=== PATIENT | female | born 2000 | race Caucasian/White ===

== ENCOUNTER 2024-07-04 21:08 | Observation (INO) | payer OTHER, SELFPAY ==
[2024-07-04 14:41] VITALS: BP 176/113
[2024-07-04 15:15] LABS: % Basophils 0.2 % (0-2); % Eosinophils 1.9 % (0-6); % Immature Granulocytes 0.7 % (0-0.5); % Lymphocytes 11.9 % (20.5-51.1); % Neutrophils 80.3 % (42.2-75.2); Absolute Eosinophils 0.3 10^3/uL (0-0.7); Absolute Immature Granulocytes 0.1 10^3/uL (0-0.05); Absolute Lymphocytes 1.6 10^3/uL (1.2-3.4); Absolute Monocytes 0.7 10^3/uL (0.1-0.6); Absolute Neutrophils 10.5 10^3/uL (1.4-6.5); Hematocrit 39.6 % (37.0-47.0); Hemoglobin 12.1 g/dL (12.0-16.0); Mean Corp Hgb Conc. 30.6 g/dL (33.0-37.0); Mean Corpuscular Hgb 24.5 pg (27.0-31.0); Mean Corpuscular Volume 80.3 fL (81.0-99.0); Mean Platelet Volume 8.2 fL (7.4-10.4); Nucleated Red Blood Cells % 0.2 %; Platelet Count 510 10^3/uL (130-400); Red Blood Cell Count 4.93 10^6/uL (4.20-5.40); Red Cell Dist. Width 17.7 % (11.5-14.5); White Blood Cell Count 13.1 10^3/uL (4.8-10.8)
[2024-07-04 15:28] LABS: ALT (SGPT) 71 U/L (0-35); AST (SGOT) 29 U/L (14-36); Albumin 3.7 g/dl (3.5-5.0); Alkaline Phosphatase 89 U/L (38-126); Blood Urea Nitrogen 5 mg/dl (7-17); Calcium 9.3 mg/dl (8.4-10.2); Carbon Dioxide 32 mmol/L (22-30); Chloride 99 mmol/L (98-107); Glucose 115 mg/dl (70-99); Potassium 4.5 mmol/L (3.5-5.1); Sodium 140 mmol/L (135-145); Total Bilirubin 0.8 mg/dl (0.2-1.3); Total Protein 6.9 g/dl (6.3-8.2); eGFR > 60.00
[2024-07-04 15:29] LABS: Lactic Acid 1.8 mmol/L (0.7-2.0)
[2024-07-04 15:40] LABS: Troponin I < 0.012 ng/ml
--- NOTE | 2024-07-04 16:04 | ED.GENMED ---
History of Present Illness
General
Chief Complaint: Skin Problem
Source: patient
Exam Limitations: none
Time Seen by Provider: 07/04/24 15:56
History of Present Illness
History of Present Illness:
See MDM
Past History
Past History
ED Past Medical History: None
ED Past Surgical History: None
Social History
Tobacco: Non-smoker
Alcohol: None
Phy Exam
Physical Exam
Physical Exam:
See MDM
Course
Orders/Labs/Results
Orders:
Orders
07/04/24 14:30
Electrocardiogram (*1) Urgent
Reason for Study: Palpitations
EKG- Treatment ONCE
07/04/24 14:58
CMP [Comprehensive Metabolic Panel] Urgent
Complete Blood Count/With Diff Urgent
HCG, Serum Qualitative Screen Urgent
Comment: ADD ON
Lactic Acid Urgent
Troponin I Urgent
Blood Culture Urgent
TAMMY Source: Blood/Venous
Specimen Description:
07/04/24 16:02
Add On- LAB Urgent
Tests Added?: Beta HCG qualitative
CT Chest PE Study Urgent
Comment:
Reason For Exam: SOB, hypoxia
07/04/24 19:58
Vancomycin [Vancocin] 2,000 mg 0.9% Sodium Chloride 500 ml [Nss] 500 ml IV NOW
Abnormal Lab Results
07/04/24
14:58
WBC 13.1 H 10^3/uL
(4.8-10.8)
MCV 80.3 L fL
(81.0-99.0)
MCH 24.5 L pg
(27.0-31.0)
MCHC 30.6 L g/dL
(33.0-37.0)
RDW 17.7 H %
(11.5-14.5)
Plt Count 510 H 10^3/uL
(130-400)
Abs Immat Gran (auto) 0.1 H 10^3/uL
(0-0.05)
Absolute Neuts (auto) 10.5 H 10^3/uL
(1.4-6.5)
Absolute Monos (auto) 0.7 H 10^3/uL
(0.1-0.6)
Immature Gran % 0.7 H %
(0-0.5)
Neutrophils % 80.3 H %
(42.2-75.2)
Lymphocytes % 11.9 L %
(20.5-51.1)
Carbon Dioxide 32 H mmol/L
(22-30)
BUN 5 L mg/dl
(7-17)
Glucose 115 H mg/dl
(70-99)
ALT 71 H U/L
(0-35)
07/04/24 14:58
07/04/24 14:58
Vital Signs
Initial and Last Documented VS:
Initial Vital Signs
Temp Pulse Resp BP Pulse Ox
98.3 F 115 20 176/113 95
07/04/24 14:41 07/04/24 14:41 07/04/24 14:41 07/04/24 14:41 07/04/24 14:41
Last Documented Vital Signs
Temp Pulse Resp BP Pulse Ox
98.3 F 101 20 126/78 98
07/04/24 14:41 07/04/24 16:40 07/04/24 16:40 07/04/24 16:40 07/04/24 16:40
MDM/Problems Addressed
Differential Diagnosis Includes:
HPI and MDM Narrative:
24-year-old female presenting for evaluation of worsening cellulitis and shortness of breath. She was placed on Keflex and had a follow-up appointment with her PCP. Apparently, the cellulitis in both upper mid thighs is getting worse and she was
hypoxic at the PCP office. Patient does acknowledge that they use the finger pulse oximeter. On arrival, patient is satting at 95% but she does complain of shortness of breath. She is mildly tachycardic
Based on the erythema of her thighs, the hypoxia and shortness of breath, will obtain CT to rule out PE
Physical exam
General: Well appearing and non-toxic
HEENT: protecting airway
Neck: appears supple
CV: No evidence of cyanosis. Mild tachycardia
Resp: No accessory muscle use. Lungs appear clear
Abd: Non-distended
Extremities: No deformities
Neuro: alert
Psych: Normal affect
Skin: Erythema noted to mid upper thighs bilaterally
Problems Addressed including Acute and Chronic Conditions affecting care:
1. Shortness of breath
Acuity: acute
Prognosis: stable
Details: Given the leg erythema and shortness of breath, will obtain CT to rule out PE
2. Leg erythema
Acuity: acute
Prognosis: stable
Details: Potentially in the setting of worsening cellulitis.
Updates
CT PE negative. Given the worsening cellulitis, will start vancomycin and admit
Differential Diagnosis (but not limited to): DVT, PE, cellulitis, pneumonia
Testing considered: Chest x-ray but will opt for CT PE instead symptoms
Drug therapy (if applicable): OTC meds, please see d/c instruction regarding Rx drugs
Amount and/or Complexity of Data Reviewed
Clinical info obtained from: Patient
External data reviewed: N/A
Labs I independently reviewed (but not limited to): Leukocytosis, troponin normal
Radiology: N/A
Pulse Ox: not hypoxic
EKG independently reviewed: Sinus tachycardia, normal axis, no STEMI
Computing Tutor: N/A
Critical Care: N/A
Risk of Complication:
Social Determinants of health: Good social support
Discussed with other providers: Hospitalist
Escalation of Care includes Admit/Obs: Given failure of outpatient antibiotics, will start vancomycin and admit
Occasional wrong word or 'sound a like' substitutions may have occurred due to the inherent limitations of voice recognition software. Read the chart carefully and recognize, using context, where substitutions have occurred.
*Critical Care Note
Total Time (30-74mins, 75-104mins- exclusive of procedures): Not Applicable
ED Attending Note
-
Portions of this chart may have been created with voice recognition software.� Occasional wrong word or��sound alike� substitutions may have occurred due to the inherent limitations of voice recognition software.
Discharge Plan
Departure
Patient Disposition: Admit
Date of Disposition: 07/04/24
Time of Disposition: 19:59
Admit to: Med/Surg
Presentation/result/management discussed w/ accepting MD/DO: Hospitalist
Patient with high blood pressure during this ER visit?: No
Discharge Problem:
Cellulitis
Referrals:
[facility], [Other]
Dian Calderon DO [Family Provider] -
Interventions
Interventions:
*Risk Screen - Suicide Last Done: 07/04/24 14:41
*General Assessment Last Done: 07/04/24 16:38
*Neglect/Abuse Screening Last Done: 07/04/24 14:41
Discharge Date and Time
Print Language: PERUVIAN
[2024-07-04 16:40] VITALS: BP 126/78
[2024-07-04 16:48] LABS: HCG, Serum Qualitative Screen Negative
--- NOTE | 2024-07-04 20:31 | HPS.HSE ---
Family Physician
-
Family Physician: Dian Calderon
Chief Complaint
-
Cellulitis
History of Present Illness
This is a 24-year-old female with past medical history significant for depression, morbid obesity skin picking disorder presenting to the emergency department with worsening thigh cellulitis over the last 1 week.
Patient reported that for the last 1 months she has had multiple skin lesions from scratching and itching. She initially was diagnosed with eczema a few years ago but was later told that she has a skin picking disorder. She was started on
antibiotics 4 days by cellulitis about 2 days ago. She took cefazolin and followed up with PMD today. PMD states that the lesion has spread and directed her to the emergency department.
Patient denies having any fevers or chills. She has no other systemic symptoms. She did complain of shortness of breath in the emergency department. She denies any cough. She denies chest pain orthopnea or PND.
In the emergency department she was afebrile, blood pressure was 126/70 with a pulse of 101 and she was satting 98% on room air.
White count was 13, hemoglobin and platelets were normal. Electrolytes BUN and creatinine were normal.
She had a CT of the chest which was negative for PE. There was no focal infiltrates or any other acute finding.
Medical History
Past Medical History
Past Medical History: Reports Psychiatric
Past Surgical History: Reports Orthopedic
Social History
Tobacco: Non-smoker
Alcohol: Former
Drug: None
Personal: Single
Family History
Family History: Not pertinent
Allergies / Home Medications
Allergies reflects when Allergies were last updated in [facility].
Home Medications with original date entered in [facility]
Allergy/Medication List:
Allergies
Allergy/AdvReac Type Severity Reaction Status Date / Time
No Known Allergies Allergy Unverified 07/04/24 14:39
Review of Systems
-
History Source: Patient
Constitutional: Reports No Symptoms
EENT: Reports No Symptoms
Respiratory: Reports No Symptoms
Cardiac: Reports No Symptoms
Abdomen/GI: Reports No Symptoms
: Reports No Symptoms
Musculoskeletal: Reports No Symptoms
Skin: Reports Rash
Neurological: Reports No Symptoms
Endocrine: Reports No Symptoms
Hematologic/Lymphatic: Reports No Symptoms
Psych: Reports No Symptoms
Physical Exam
Vital Signs
Vital Signs
Temp Pulse Resp BP Pulse Ox
98.3 F 101 20 126/78 98
07/04/24 14:41 07/04/24 16:40 07/04/24 16:40 07/04/24 16:40 07/04/24 16:40
Physical Exam
General: Well Developed, Well Nourished, No Apparent Distress, Comfortable and Morbidly Obese
HEENT: NormoCephalic, Anicteric, Moist mucous membranes and Atraumatic
Respiratory: Clear
Cardiac: S1/S2 and Regular Rhythm
GI: Soft, Non Tender and Non Distended
Rectal: Deferred by Provider
Musculoskeletal: No Clubbing, No Cyanosis and No Edema
Skin: Rash (multiple circular nodules and excoriation the lower extremities. My evaluation of the thighs is somewhat limited by body habitus. Did note bilateral thigh edema and erythema in the inner thighs by the groin. Non-pruritic. TTP.)
Neuro: AO x 3 and Nonfocal/grossly intact
Hematologic/Lymphatic: No Lymphadenopathy
Psych: Calm
Laboratory Results
-
07/04/24 14:58
07/04/24 14:58
Laboratory Results
Lactic Acid 1.8 mmol/L (0.7-2.0) 07/04/24 14:58
Total Bilirubin 0.8 mg/dl (0.2-1.3) 07/04/24 14:58
AST 29 U/L (14-36) 07/04/24 14:58
ALT 71 U/L (0-35) H 07/04/24 14:58
Alkaline Phosphatase 89 U/L (38-126) 07/04/24 14:58
Troponin I < 0.012 ng/ml 07/04/24 14:58
Data Reviewed
-
CT Scan: Report Reviewed by me
Medical Tests (Nuc Med, Echo, EKG etc): Image Personally Visualized and interpreted
Lab Data: Labs Reviewed by me
Old Records: Reviewed
Impression/Plan
-
IMPRESSION:
24 y.o with skin breaks from scratching and bilateral thigh erythema and edema. She has morbid obesity and some lymphedema on exam. NOn-prurituc and has already tried a fungal cream so unlikely fungal rash. Cannot rule out contact dermatitis.
PLAN:
1. Cellulitis
- admit to med/surg observation
- started vanc in ED, due to failure of keflex, will continue the vanc for now
- mrsa swab
- ID consultation
DVT PPX - lovenox sq
Code status - Full Code
[2024-07-04 20:32] VITALS: BMI 67.4
[2024-07-04] MEDS: VANCOCIN 540 MG IV (21:17)
[2024-07-04 21:27] VITALS: BP 128/78
[2024-07-04 22:13] VITALS: BP 150/97
--- NOTE | 2024-07-04 22:24 | PHA.VAN.IN ---
Assessment
- Assessment
Renal Function: Unknown baseline
Concomitant Antimicrobials: NONE
- Previous Dosing Experience
Previous Regimen: NONE
AUC Dosing Plan
- Dosing Variables
Dosing Weight (kg): 195
Dosing CrCl (ml/min): 125
Vd coefficient (L/kg): 0.4
- Empiric Dosing
Initial / Loading Dose: 2GM
Maintenance Regimen: 1250MG IV Q8H
Estimated AUC (mcg*h/mL): 481
Estimated Peak (mcg*h/mL): 27.7
Estimated Trough (mcg/ml): 13.7
Estimated Half Life (H): 6.4
Pharmacokinetics Vancomycin I
- -
Patient Age: 24
Patient Sex: Female
Vancomycin Day #: 1
Indication: Skin And Soft Tissue (THIGH CELLULITIS)
Requesting Provider: SARKIS
Height / Weight:
Height 5 ft 5 in
Actual Weight 195.045 kg
Pertinent Past Medical History: FAILED OUTPT TX WITH KEFLEX
- Vital Signs / Lab Results
Temp Pulse Resp BP Pulse Ox
99.0 F 123 20 150/97 93
07/04/24 22:13 07/04/24 22:13 07/04/24 22:13 07/04/24 22:13 07/04/24 22:13
Lab Results - Hematology
07/04/24
14:58
WBC 13.1 H
Lab Results - Chemistry
07/04/24
14:58
BUN 5 L
Creatinine 0.7
Albumin 3.7
07/04/24
14:58
Lactic Acid 1.8
--- NOTE | 2024-07-04 22:55 | PTCARENOTE ---
Pt received from ED via stretcher. Ambulated to bed w/assist. Oriented to surroundings and plan of care discussed. Admission and assessment completed. Scattered scabs noted on LE, pubis, and abdomen. MARGARITO. MASD to bilateral groin, breast and
abdominal fold, miconazole powder to be obtained. Instructed to ring for assist, verbalizes understanding. Bariatric bed obtained. Call misty w/in reach.
[2024-07-04 23:30] VITALS: BP 137/81
[2024-07-04 23:34] VITALS: BMI 82.1
[2024-07-05] MEDS: TYLENOL 650 MG PO (00:32)
[2024-07-05] MEDS: VANCOCIN 275 MG IV (06:06)
[2024-07-05 07:36] VITALS: BP 156/100
[2024-07-05] MEDS: DESENEX/MITRAZOL/ZEASORB 1 APPLIC TOPICAL (08:09)
[2024-07-05 08:12] VITALS: BMI 82.1
--- NOTE | 2024-07-05 08:30 | W.PN.HOSP.TC ---
Today's Communication/Plan
-
Discharge today
Assessment / Plan
Assessment / Plan
Physical Exam
General: Not in acute distress
HEENT: Normocephalic, Moist mucous membranes
Respiratory: Clear to Auscultation Bilaterally
Cardiac: S1/S2 and Regular Rhythm. Tachycardia.
GI: Soft, Non Tender and Non Distended. Positive bowel sounds.
Musculoskeletal: No Cyanosis and No Edema
Skin: Rash (multiple circular nodules and excoriation the lower extremities. Bilateral thigh edema and erythema in the inner thighs by the groin. Non-pruritic. TTP.)
Neuro: AAO x 3 and Nonfocal/grossly intact
Psych: Calm
Assessment/Plan
24-year-old female with past medical history significant for depression, morbid obesity and skin picking disorder presented to the emergency department with worsening thigh cellulitis over the last 1 week prior to presentation. Patient reported that
for the last 1 months she has had multiple skin lesions from scratching and itching. She initially was diagnosed with eczema a few years ago but was later told that she has a skin picking disorder. She was started on antibiotics 4 days by
cellulitis about 2 days ago. She took cefazolin and followed up with PMD. PMD stated that the lesion has spread and directed her to the emergency department. Patient denied having any fevers or chills. She has no other systemic symptoms. She did
complain of shortness of breath in the emergency department, which she reported is baseline and chronic. She denied any cough. She denied chest pain orthopnea or PND. In the emergency department she was afebrile, blood pressure was 126/70 with a
pulse of 101 and she was satting 98% on room air. White count was 13, hemoglobin and platelets were normal. Electrolytes BUN and creatinine were normal. She had a CT of the chest which was negative for PE. There was no focal infiltrates or any
other acute finding.
Folliculitis
Intertrigo
Small furuncle in the groin
Likely S aureus colonization
- Started Vanc in ED, due to failure of Keflex
- ID consultation
- Linezolid for 7 days (so 6 more days, starting 07/06), intranasal mupirocin BID x 14 days (so 6 more days, starting 07/06)
- Fluconazole 400 mg once weekly x2 doses (so 1 more dose in 7 days)
- Wash sheets and clothes on hot for two weeks
- Once a week wash with chlorhexidine soap OTC
- Warm compresses as instructed
- keep skin folds clean and dry
Sinus Tachycardia
- CT Chest ruled out PE
- Outpatient evaluation with PCP
Class III obesity
Hepatic Steatosis
DVT Prophylaxis - Lovenox SUBQ
Code status - Full Code
More than 30 minutes spent in discharge including
Final examination of the patient
Summarizing hospital stay
Instructions for continuing care to all relevant caregivers
Preparation of discharge records, prescriptions, and referral forms
Total time spent (in minutes): 36
Anticipated Discharge: Today
Subjective/Interval History
-
Date of Service: July 05, 2024
Patient was seen and examined. She denied any new symptoms or complaints. She denied any chest pain, and she said that the shortness of breath she has is her baseline shortness of breath, nothing new.
Objective Data
-
Labs:
Laboratory Results
07/05/24
06:00
WBC Pending
Hgb Pending
Hct Pending
Plt Count Pending
Sodium Pending
Potassium Pending
Chloride Pending
Carbon Dioxide Pending
BUN Pending
Creatinine Pending
Glucose Pending
Calcium Pending
Vital Signs:
Vital Signs
Temp Pulse Resp BP Pulse Ox
98.3 F 116 19 156/100 98
07/05/24 07:36 07/05/24 07:36 07/05/24 07:36 07/05/24 07:36 07/05/24 07:36
I&O
07/04/24 07/05/24 07/06/24
06:59 06:59 06:59
Intake Total 480 / 480
Balance 480 / 480
[2024-07-05 09:36] LABS: Hematocrit 40.3 % (37.0-47.0); Hemoglobin 12.2 g/dL (12.0-16.0); Mean Corp Hgb Conc. 30.3 g/dL (33.0-37.0); Mean Corpuscular Hgb 24.6 pg (27.0-31.0); Mean Corpuscular Volume 81.3 fL (81.0-99.0); Mean Platelet Volume 8.3 fL (7.4-10.4); Platelet Count 541 10^3/uL (130-400); Red Blood Cell Count 4.96 10^6/uL (4.20-5.40); Red Cell Dist. Width 18.1 % (11.5-14.5); White Blood Cell Count 13.2 10^3/uL (4.8-10.8)
[2024-07-05 10:03] LABS: Blood Urea Nitrogen 5 mg/dl (7-17); Calcium 9.1 mg/dl (8.4-10.2); Carbon Dioxide 33 mmol/L (22-30); Chloride 99 mmol/L (98-107); Estimated Creatinine Clearance > 125 ml/min; Glucose 135 mg/dl (70-99); Potassium 4.8 mmol/L (3.5-5.1); Sodium 138 mmol/L (135-145); eGFR > 60.00
--- NOTE | 2024-07-05 10:33 | PHA.VAN.FU ---
Vancomycin Assessment / Plan
- Assessment
Renal Function: Stable
WBC's are: Stable
In the past 24 hrs, patient has been: Afebrile
- Dosing Plan
Continue: VANCO 1250 MG Q8
- Monitoring Plan
No level(s) ordered at this time: CONSIDER LEVEL IN NEXT FEW DAYS
- Follow Up
Pharmacy will continue to follow.
Vancomycin Follow UP
- -
Patient Age: 24
Patient Sex: Female
Vancomycin Day #: 2
Indication: Skin And Soft Tissue (THIGH CELLULITIS)
Requesting Provider: SARKIS
Height / Weight:
Height 5 ft 5 in
Actual Weight 223.734 kg
Pertinent Past Medical History: FAILED OUTPT TX WITH KEFLEX
- Vital Signs / Lab Results
Temp Pulse Resp BP Pulse Ox
98.3 F 116 19 156/100 98
07/05/24 07:36 07/05/24 07:36 07/05/24 07:36 07/05/24 07:36 07/05/24 08:30
Lab Results - Hematology
07/04/24 07/05/24
14:58 09:20
WBC 13.1 H 13.2 H
Lab Results - Chemistry
07/04/24 07/05/24
14:58 09:20
BUN 5 L 5 L
Creatinine 0.7 0.8
Estimated Creat Clear > 125
Albumin 3.7
07/04/24
14:58
Lactic Acid 1.8
--- NOTE | 2024-07-05 11:20 | CON.ID ---
Consultation
-
Date/Time Consultation Requested: 07/05/24 4:17
Date/Time Consultation Performed: 07/05/24 1:37
Requesting Provider: Dr Freeman
Performing Provider: Dr Oliva
Reason for Consultation: bilateral thigh cellulitis
Chief Complaint / Past History
Chief Complaint
Cellulitis
History of Present Illness
Ms Foster is a 24 year old female with class III+ obesity (BMI 82), dermatillomania who presented here yesterday for pruritus of the bilateral thighs. No fevers, chills or systemic symptoms. She was started on keflex by her PCP however on
reassessment they noted progression and she was referred to the ER
Since arrival here she has been afebrile, bp stable, wbc count 13, hgb 12, plt 541, L shift is noted, cr 0.8, lactic acid 1.8, lfts wnl, hcg negative, a single blood culture was done
Past History
Past Medical History: Psychiatric
Past Surgical History: Orthopedic
Allergy History:
No Known Allergies Allergy (Unverified 07/04/24 14:39)
Medications Reviewed: Yes
Social History
Tobacco: Non-Smoker
Alcohol: Former
Drug: None
Family History
Family History: Not Pertinent
Review of Systems
Review of Systems
General: Negative Fever or Chills
All systems: All other systems were reviewed and were negative
Vital Signs
Temp Pulse Resp BP Pulse Ox
98.3 F 116 19 156/100 98
07/05/24 07:36 07/05/24 07:36 07/05/24 07:36 07/05/24 07:36 07/05/24 08:30
Physical Exam
Physical Exam
Constitutional: No Acute Distress
Cardiovascular: Regular Rate and S1/S2; Negative Murmur or Rub
Pulmonary: Clear and Symmetric; Negative Wheezes, Rales or Rhonchi
Gastrointestinal: Soft, Non Tender, Non Distended and Normal Bowel Sounds
Skin: Warm, Dry and Other (folliculitis and mild excoriations of the BL lower extremities; small developing furuncle in the groin, small area of coalescing redness in the fold of one of the legs); Negative Jaundice
Lab / Diagnostic Study Results
07/05/24 09:20
07/05/24 09:20
Abs Immat Gran (auto) 0.1 10^3/uL (0-0.05) H 07/04/24 14:58
Absolute Neuts (auto) 10.5 10^3/uL (1.4-6.5) H 07/04/24 14:58
Absolute Lymphs (auto) 1.6 10^3/uL (1.2-3.4) 07/04/24 14:58
Absolute Monos (auto) 0.7 10^3/uL (0.1-0.6) H 07/04/24 14:58
Absolute Basos (auto) 0.0 10^3/uL (0-0.2) 07/04/24 14:58
Immature Gran % 0.7 % (0-0.5) H 07/04/24 14:58
Neutrophils % 80.3 % (42.2-75.2) H 07/04/24 14:58
Lymphocytes % 11.9 % (20.5-51.1) L 07/04/24 14:58
Monocytes % 5.0 % (1.7-9.3) 07/04/24 14:58
Eosinophils % 1.9 % (0-6) 07/04/24 14:58
Basophils % 0.2 % (0-2) 07/04/24 14:58
Lactic Acid 1.8 mmol/L (0.7-2.0) 07/04/24 14:58
Microbiology Results
Micro:
07/04/24 14:58 Blood Culture - Pending
Blood/Venous
Assessment / Plan
Folliculitis
Small furuncle in the groin
Class III obesity
Likely S aureus colonization
- given hemodynamic stability further blood cultures are not recommended
- switch to linezolid which may have better tissue penetration at this BMI - plan 7 day course
- once a week wash with chlorhexidine soap OTC
- warm compresses to the small
- intranasal mupirocin BID x 14 days
- wash sheets and clothes on hot for two weeks
- my overall impression is recurrent folliculitis/intertrigo which is pruritic rather than a picking disorder, though if skin issues are well controlled and behavior ongoing that assessment could change
- shares that shes getting set up for bariatric surgery - I encouraged her to pursue this therapy
Intertrigo
- fluconazole 400 mg once weekly x2 doses
- keep skin folds clean and dry
Care Review
Plan reviewed with: Physician (Dr Gayle)
[2024-07-05] MEDS: BACTROBAN 2% OINTMENT 1 APPLIC NASAL (13:26)
[2024-07-05] MEDS: ZYVOX 600 MG PO (13:26)
[2024-07-05] MEDS: DIFLUCAN 400 MG PO (13:28)
--- NOTE | 2024-07-05 13:45 | CM ---
audit manager reviewed patient's chart and met with patient and patient was admitted under OBS, OBS letter signed and placed on chart, patient reports that she lives with her significant other in a multilevel apartment, is independent with adl's and
ambulation, no dme, plan is to home with significant other when stable.
PCP: Dr Dian Calderon
Pharmacy: [facility] in [place]
Plan; Home with significant other when stable.
[2024-07-05 14:25] VITALS: BP 164/96
--- NOTE | 2024-07-05 15:08 | W.DCSUMMARY ---
Discharge Summary
Discharge Data
Date of Admission: 07/04/24
Date of Discharge: 07/05/24
Total time spent discharging patient (in min): 36
-
Pending Results: No
Hospital Course
24-year-old female with past medical history significant for depression, morbid obesity skin picking disorder presenting to the emergency department with worsening bilateral thigh redness and swelling for about 1 week prior to presentation. Patient
was started on Vancomycin. Infectious Disease was consulted, and their impression was that patient had folliculitis, small furuncle in the groin and likely S aureus colonization. Patient was started on Linezolid, Mupirocin and Fluconazole. Patient
was stable for discharge home with outpatient follow-up.
Discharge Plan
-
Patient Disposition: Home (Routine Discharge)
Discharge Diagnosis/Procedures: Folliculitis
Intertrigo
Small furuncle in the groin
Likely S aureus colonization
Sinus Tachycardia
Class III obesity
Hepatic Steatosis
CT Chest PE Study (as per radiologist's report):
'Findings:
No evidence for large central main or lobar pulmonary emboli. Evaluation of segmental and subsegmental pulmonary arteries is limited due to contrast bolus quality/patient body habitus.
Branching Order Level of the Most Proximal Level of Pulmonary Embolus: None.
No thoracic aortic aneurysm. No pulmonary nodules, areas of airspace disease, pleural or pericardial effusions, or enlarged lymph nodes in the thorax. Heart is not enlarged.
Visualized portion of the upper abdomen demonstrates diffuse hepatic steatosis.
IMPRESSION:
1. No evidence of pulmonary embolism within the limitations as described.
2. No significant abnormality identified in the chest, as described above.
3. Hepatic steatosis.'
Condition: Good
Diet: Low Fat, Low Cholesterol, Low Sodium and Diabetic, Carb Controlled
Activity: As tolerated
Activity Restrictions/Additional Instructions:
- once a week wash from the neck down with over the counter chlorhexidine wash x2 weeks
- warm compresses to the small pimple high on your leg until it drains
- use a qtip to apply over the counter mupirocin twice a day inside your nose x 14 days
- wash sheets and clothes on hot for two weeks
- Dr Oliva's overall impression is recurrent folliculitis/intertrigo which is pruritic rather than a picking disorder, though if skin issues are well controlled and behavior ongoing that assessment could change
- fluconazole 400 mg once weekly x2 doses, youll get the first dose in the hospital
- keep skin folds clean and dry
-please follow-up with your primary care provider in less than 1 week and show them your hospital discharge paperwork
Referrals:
Dian Calderon, DO [Family Provider] - in less than 1 week
Additional Discharge Medication Instructions: Fluconazole, Linezolid, and Mupirocin are new medications.
Cephalexin stopped.
Prescriptions:
New
mupirocin 2 % Ointment
1 applic intranasal BID Qty: 50 0RF
Rx Instructions:
Next dose on 07/05/24 evening, continue through 07/18/24
fluconazole 200 mg Tablet
400 mg PO ONCE Qty: 2 0RF
Rx Instructions:
Take 400 mg once on 07/12/24
linezolid 600 mg Tablet
600 mg PO BID Qty: 13 0RF
Rx Instructions:
Continue through 07/12/24
Continued
amlodipine 2.5 mg Tablet
2.5 mg PO DAILY
Discontinued
cephalexin 500 mg Tablet
500 mg PO DAILY
Discharge Orders:
Discharge Patient (As Directed); Ordered 07/05/24
Ordered By: Jasiel Gayle
Discharge Date and Time
Discharge Date/Time: 07/05/24 16:26
Print Language: POLISH
[2024-07-05] MEDS: NORVASC 2.5 MG PO (15:09)
--- NOTE | 2024-07-05 16:25 | PTCARENOTE ---
Discharge order acknowledged. Discharge instructions reviewed with patient. No further questions. IV site removed. Wheelchair escort provided to significant other's car.
== END 2024-07-05 16:26 | disposition home or self-care (01) ==
LOC: 1 ACUTE 21:08
PROVIDERS: Student in an Organized Health Care Education/Training Program; ADMITTING PHYSICIAN Internal Medicine; ATTENDING PHYSICIAN Hospitalist; CONSULT PHYSICIAN Student in an Organized Health Care Education/Training Program; EMERGENCY PHYSICIAN Student in an Organized Health Care Education/Training Program; FAMILY PHYSICIAN Family Medicine
DX: L03.116 Cellulitis of left lower limb (principal); L03.115 Cellulitis of right lower limb; L73.9 Follicular disorder, unspecified; F42.4 Excoriation (skin-picking) disorder; L02.224 Furuncle of groin; L30.4 Erythema intertrigo; I89.0 Lymphedema, not elsewhere classified; E66.813 Obesity, class 3; R00.2 Palpitations; R06.02 Shortness of breath; R09.02 Hypoxemia; Z68.45 Body mass index [BMI] 70 or greater, adult; R00.0 Tachycardia, unspecified; D72.829 Elevated white blood cell count, unspecified; F32.A Depression, unspecified; K76.0 Fatty (change of) liver, not elsewhere classified
CPT/HCPCS: 71275; 80048; 80053; 83605; 84484; 84703; 85025; 85027; 87040; 93005; 96374; 99285; G0378; Q9967

== ENCOUNTER 2024-07-06 12:29 | Emergency (ER) | payer OTHER, SELFPAY ==
[2024-07-06 12:33] VITALS: BP 142/90
--- NOTE | 2024-07-06 13:10 | ED.GENMED ---
History of Present Illness
General
Chief Complaint: Skin Surface Trauma
Source: patient and family (Mother)
Time Seen by Provider: 07/06/24 12:54
History of Present Illness
History of Present Illness:
Patient scratched her right leg with severe bleeding. Is less than 10.
Past History
Past History
ED Past Medical History: None
ED Past Surgical History: None
Social History
Tobacco: Non-smoker
Alcohol: None
Review of Systems
Review of Systems
All Other Systems: Not applicable
Phy Exam
Physical Exam
Physical Exam:
General: Nontoxic appearing in no distress
Skin: Warm and dry, no rash
Neuro: Alert, nontoxic, grossly nonfocal
Psychiatric: Good eye contact and appropriate
Musculoskeletal: Significant dried blood trailing down her right leg. No active bleeding. Bandage removed with a small superficial wound. Currently not bleeding
Course
Vital Signs
Initial and Last Documented VS:
Initial Vital Signs
Temp Pulse Resp BP Pulse Ox
98.3 F 107 18 142/90 93
07/06/24 12:33 07/06/24 12:33 07/06/24 12:33 07/06/24 12:33 07/06/24 12:33
Last Documented Vital Signs
Temp Pulse Resp BP Pulse Ox
98.3 F 107 18 142/90 93
07/06/24 12:33 07/06/24 12:33 07/06/24 12:33 07/06/24 12:33 07/06/24 12:33
MDM/Problems Addressed
Differential Diagnosis Includes:
I suspect this was a bleeding varicosity given the description of bleeding at home. Clinically stable. No indication for lab testing. Area was dermabonded dressing and follow-up
*Critical Care Note
Total Time (30-74mins, 75-104mins- exclusive of procedures): Not Applicable
Update Note
Update Note:
1315... Recheck no bleeding. Stable for discharge
ED Attending Note
-
Portions of this chart may have been created with voice recognition software.� Occasional wrong word or��sound alike� substitutions may have occurred due to the inherent limitations of voice recognition software.
Discharge Plan
Departure
Patient Disposition: Home (Routine Discharge)
Date of Disposition: 07/06/24
Time of Disposition: 13:16
Patient with high blood pressure during this ER visit?: Yes
Discharge Problem:
Bleeding wound right leg
Instructions: Wound Care (DC), BLOOD PRESSURE
Prescriptions:
No Action
amlodipine 2.5 mg Tablet
2.5 mg PO DAILY
mupirocin 2 % Ointment
1 applic intranasal BID Qty: 50 0RF
Rx Instructions:
Next dose on 07/05/24 evening, continue through 07/18/24
fluconazole 200 mg Tablet
400 mg PO ONCE Qty: 2 0RF
Rx Instructions:
Take 400 mg once on 07/12/24
linezolid 600 mg Tablet
600 mg PO BID Qty: 13 0RF
Rx Instructions:
Continue through 07/12/24
Referrals:
Dian Calderon, DO [Family Provider] - Follow up in 2-3 days
Interventions
Interventions:
*Risk Screen - Suicide Last Done: 07/06/24 12:33
*General Assessment Last Done: 07/06/24 12:33
*Neglect/Abuse Screening Last Done: 07/06/24 12:33
Discharge Date and Time
Print Language: [place]
== END 2024-07-06 13:58 | disposition home or self-care (01) ==
LOC: EMR 12:29
PROVIDERS: EMERGENCY PHYSICIAN Emergency Medicine; FAMILY PHYSICIAN Family Medicine
DX: S81.801A Unspecified open wound, right lower leg, initial encounter (principal); X58.XXXA Exposure to other specified factors, initial encounter
CPT/HCPCS: 99282